=== PATIENT | female | born 1980 | race Caucasian/White ===

== ENCOUNTER 2017-06-12 11:58 | Day surgery (SDC) | payer BC, OTHER ==
[~2017-06-12] VITALS: Ht 157.5 cm; Wt 107.0 kg
[~2017-06-12 11:58] MED LIST: ADVIL LIQUI-GE200 MG PO; AMBIEN5 MG PO; CYMBALTA60 MG PO; DILAUDID2 MG PO; ESCITALOPRAM OX10 MG PO; FLEXERIL5 MG PO; GABAPENTIN100 MG PO; LATUDA20 MG PO; MOTRIN600 MG PO; NAPROSYN500 MG PO; PREDNISONE10 M1 PO; PREDNISONE20 MG PO; TRAUMEEL; TRAZODONE HCL50 MG PO; TYLENOL EXTRA500 MG PO; VALIUM5 MG PO; VITAMIN D-32000 UNI2 PO; ZOLOFT25 MG PO; ZYRTEC10 M3 PO
[2017-06-12 12:33] LABS: POINT-OF-CARE METER ID UU13113694
[2017-06-18] MEDS ORDERED: MOBIC7.5 MG PO (13:06)
== END 2017-06-12 13:50 | disposition home or self-care (01) ==
LOC: PAIN 11:58 → SDC 12:45 → PAIN 12:45
PROVIDERS: Anesthesiology Pain Medicine
DX: M47.816 Spondylosis without myelopathy or radiculopathy, lumbar region (principal); M54.5 Low back pain; M51.26 Other intervertebral disc displacement, lumbar region; M79.1 Myalgia; M46.1 Sacroiliitis, not elsewhere classified; M54.12 Radiculopathy, cervical region; F41.8 Other specified anxiety disorders; E66.01 Morbid (severe) obesity due to excess calories; Z68.41 Body mass index [BMI] 40.0-44.9, adult; F17.210 Nicotine dependence, cigarettes, uncomplicated; Z79.891 Long term (current) use of opiate analgesic
CPT/HCPCS: 82948; J1030; J2250; J3010; S0020

== ENCOUNTER 2017-06-19 11:55 | Day surgery (SDC) | payer BC, OTHER ==
[~2017-06-19] VITALS: Ht 157.5 cm; Wt 107.0 kg
[~2017-06-19 11:55] MED LIST changes: +MOBIC7.5 MG PO
== END 2017-06-19 14:28 | disposition home or self-care (01) ==
LOC: PAIN 11:55 → SDC 12:45 → PAIN 14:28
DX: M47.816 Spondylosis without myelopathy or radiculopathy, lumbar region (principal); M54.5 Low back pain; M51.26 Other intervertebral disc displacement, lumbar region; M46.1 Sacroiliitis, not elsewhere classified; M54.12 Radiculopathy, cervical region; M79.1 Myalgia; F41.9 Anxiety disorder, unspecified; E78.5 Hyperlipidemia, unspecified; E66.01 Morbid (severe) obesity due to excess calories; Z68.41 Body mass index [BMI] 40.0-44.9, adult; F17.210 Nicotine dependence, cigarettes, uncomplicated
CPT/HCPCS: J1030; J2250; J3010; S0020

== ENCOUNTER 2017-06-25 14:59 | Emergency (ER) | payer BC, OTHER ==
[~2017-06-25] VITALS: Ht 157.5 cm; Wt 106.0 kg
[2017-06-25] MEDS ORDERED: PREDNISONE10 MG PO (16:26)
[2017-06-25 17:06] VITALS: BP 128/87
== END 2017-06-25 17:12 | disposition home or self-care (01) ==
LOC: EME 14:59
DX: M54.42 Lumbago with sciatica, left side (principal)
CPT/HCPCS: 99281; 99284; J1100; J1885; J2270

== ENCOUNTER 2017-08-12 11:45 | Day surgery (SDC) | payer BC, OTHER ==
[~2017-08-12 11:45] MED LIST changes: +PREDNISONE10 MG PO
== END 2017-08-12 14:06 | disposition home or self-care (01) ==
LOC: PAIN 11:45 → SDC 12:30 → PAIN 12:30
DX: M47.26 Other spondylosis with radiculopathy, lumbar region (principal); M51.16 Intervertebral disc disorders with radiculopathy, lumbar region; M79.1 Myalgia; M46.1 Sacroiliitis, not elsewhere classified; F41.9 Anxiety disorder, unspecified; M54.12 Radiculopathy, cervical region; E78.5 Hyperlipidemia, unspecified; E66.01 Morbid (severe) obesity due to excess calories; Z68.41 Body mass index [BMI] 40.0-44.9, adult; M70.70 Other bursitis of hip, unspecified hip; F17.200 Nicotine dependence, unspecified, uncomplicated; Z79.891 Long term (current) use of opiate analgesic
CPT/HCPCS: J1100; J2250; J3010

== ENCOUNTER 2017-10-10 13:58 | Emergency (ER) | payer BC, OTHER ==
[~2017-10-10] VITALS: Ht 157.5 cm; Wt 108.5 kg
[~2017-10-10 13:58] MED LIST changes: +BUPROPION XL300 MG PO; +CLARITIN,ALAVAR10 MG PO; +ESCITALOPRAM OX20 MG PO; +PREDNISONE50 MG PO
[2017-10-10] MEDS ORDERED: KEFLEX500 MG PO (15:56)
[2017-10-10] MEDS ORDERED: BACTROBAN OINTM22 GM TP (15:56)
[2017-10-10] MEDS ORDERED: VALTREX1000 MG PO (15:58)
[2017-10-10 16:07] VITALS: BP 126/80
== END 2017-10-10 16:08 | disposition home or self-care (01) ==
LOC: EME 13:58
DX: L03.211 Cellulitis of face (principal); F31.9 Bipolar disorder, unspecified; Z87.442 Personal history of urinary calculi; Z87.891 Personal history of nicotine dependence
CPT/HCPCS: 99281; 99284

== ENCOUNTER 2018-03-17 11:42 | Emergency (ER) | payer OTHER ==
[~2018-03-17] VITALS: Ht 157.5 cm; Wt 109.8 kg
[~2018-03-17 11:42] MED LIST changes: +BACTROBAN OINTM22 GM TP; +KEFLEX500 MG PO; +VALTREX1000 MG PO
[2018-03-17] MEDS ORDERED: REGLAN10 MG PO (14:55)
[2018-03-17] MEDS ORDERED: ZOFRAN ODT4 MG PO (14:55)
[2018-03-17 15:06] VITALS: BP 130/89
== END 2018-03-17 15:07 | disposition home or self-care (01) ==
LOC: EME 11:42
DX: G43.909 Migraine, unspecified, not intractable, without status migrainosus (principal); R11.2 Nausea with vomiting, unspecified; F17.200 Nicotine dependence, unspecified, uncomplicated
CPT/HCPCS: 99281; 99285; J1200; J1885; J2765; J7030

== ENCOUNTER 2018-07-14 09:46 | Day surgery (SDC) | payer OTHER ==
[~2018-07-14] VITALS: Ht 157.5 cm; Wt 106.6 kg
[~2018-07-14 09:46] MED LIST changes: +CYMBALTA30 MG PO; +REGLAN10 MG PO; +ULTRAM50 MG PO; +ZOFRAN ODT4 MG PO
[2018-07-17] MEDS ORDERED: FLONASE ALLERG9.9 ML BOTH NARES (11:33)
[2018-07-17] MEDS ORDERED: WELLBUTRIN XL300 MG PO (11:33)
[2018-07-17] MEDS ORDERED: SINGULAIR10 MG PO (11:34)
[2018-07-17] MEDS ORDERED: VITAMIN D31000 UNIT PO (11:34)
[2018-07-17] MEDS ORDERED: MOBIC7.5 MG PO (11:35)
== END 2018-07-14 11:57 | disposition home or self-care (01) ==
LOC: PAIN 09:46 → SDC 10:30 → PAIN 11:57
DX: M47.816 Spondylosis without myelopathy or radiculopathy, lumbar region (principal); M51.26 Other intervertebral disc displacement, lumbar region; M79.1 Myalgia; E66.01 Morbid (severe) obesity due to excess calories; Z88.5 Allergy status to narcotic agent
CPT/HCPCS: J1030; J2250; J3010; S0020

== ENCOUNTER 2018-07-21 08:55 | Day surgery (SDC) | payer OTHER ==
[~2018-07-21] VITALS: Ht 157.5 cm; Wt 106.6 kg
[~2018-07-21 08:55] MED LIST changes: +FLONASE ALLERG9.9 ML BOTH NARES; +SINGULAIR10 MG PO; +VITAMIN D31000 UNIT PO; +WELLBUTRIN XL300 MG PO
== END 2018-07-21 11:00 | disposition home or self-care (01) ==
LOC: PAIN 08:55 → SDC 09:30 → PAIN 09:30
PROC: 3E0T3TZ Introduction of Destructive Agent into Peripheral Nerves and Plexi, Percutaneous Approach (ICD-10-PCS; principal; 2018-07-21)
PROC: BR161ZZ Fluoroscopy of Lumbar Facet Joint(s) using Low Osmolar Contrast (ICD-10-PCS; principal; 2018-07-21)
DX: M47.816 Spondylosis without myelopathy or radiculopathy, lumbar region (principal); M51.26 Other intervertebral disc displacement, lumbar region; M79.1 Myalgia; I10 Essential (primary) hypertension; F41.9 Anxiety disorder, unspecified; E78.5 Hyperlipidemia, unspecified; E66.01 Morbid (severe) obesity due to excess calories; Z87.891 Personal history of nicotine dependence; Z68.41 Body mass index [BMI] 40.0-44.9, adult; Z79.891 Long term (current) use of opiate analgesic; Z88.5 Allergy status to narcotic agent
CPT/HCPCS: J1030; J2250; J3010; S0020